=== PATIENT | female | born 1955 ===

== ENCOUNTER 2019-05-18 07:30 | Inpatient (IN) ==
[2019-05-13 14:56] LABS: Appearance,Urine CLEAR; Bilirubin,Urine NEG (NEG); Color,Urine STRAW; Culture Indicated,Urine NO; Glucose,Urine (UA) NEGATIVE (NEG); Ketones,Urine NEG (NEG); Leukocyte Esterase,Urine NEG /uL (NEG); Nitrate,Urine NEG (NEG); Protein,Urine NEG (NEG); Specific Gravity,Urine 1.006 (1.000-1.035); Urine Blood NEG mg/dL (<0.03); Urobilinogen,Urine NEG (NEG)
[2019-05-13 17:27] LABS: Estimated Average Glucose(eAG) 128 mg/dL; Hemoglobin A1C 6.1 % HGB (4.0-6.0)
[2019-05-13 18:09] LABS: Basophils # (Auto) 0 K/mcL (0.0-0.3); Basophils % (Auto) 0.3 % (0.0-2.0); Eosinophils # (Auto) 0.1 K/mcL (0.0-0.7); Eosinophils % (Auto) 0.7 % (0.0-7.0); Granulocytes % (Auto) 69.7 % (38.0-78.0); Hemoglobin 13.3 g/dL (12.0-15.0); Lymphocytes # (Auto) 3.3 K/mcL (1.5-4.8); Lymphocytes % (Auto) 23.4 % (15.5-49.0); Mean Cell Volume 96.5 fL (80.0-100.0); Mean Corpuscular HGB Conc 34.2 g/dL (31.0-36.0); Mean Platelet Volume 7.9 fL (7.4-10.4); Monocytes # (Auto) 0.8 K/mcL (0.1-0.9); Monocytes % (Auto) 5.9 % (1.0-12.0); Platelet Count 292 K/mcL (140-440); RBC 4.04 M/mcL (4.00-5.20); Red Cell Distribution Width 12.9 % (11.5-14.5); WBC 14.3 K/mcL (4.5-11.0)
[2019-05-13 18:30] LABS: Blood Urea Nitrogen 13 mg/dl (8-23); Carbon Dioxide 24 mmol/L (22-30); Glomerular Filtration Rate 98; Glucose 116 mg/dL (70-105)
[2019-05-13 18:33] LABS: Chloride 93 mmol/L (96-108)
[~2019-05-18 07:30] MED LIST: CELECOXIB 200 MG CAPSULE PO SCH; PREGABALIN 75 MG CAPSULE PO SCH; ceFAZolin 2 GM in DEXTROSE 5% IN WATER 50 ML IV SCH; oxyCODONE 10 MG TAB.ER.12H PO SCH
[2019-05-18] MEDS ORDERED: IPRATROPIUM/ALBUTEROL 3 ML AMPUL.NEB NEB PRN ×2 (08:00→13:49)
[2019-05-18] MEDS ORDERED: SCOPOLAMINE 1 PATCH PATCH TOPICAL PRN (08:00)
[2019-05-18] MEDS ORDERED: fentaNYL 250 MCG/5 ML VIAL IV ONE (11:10)
[2019-05-18] MEDS ORDERED: KETAMINE 100 MG/ML ML IV ONE (11:10)
[2019-05-18] MEDS ORDERED: ONDANSETRON 4 MG/2 ML VIAL IV ONE (11:10)
[2019-05-18] MEDS ORDERED: SUCCINYLCHOLINE 20 MG/ML ML IV ONE (11:10)
[2019-05-18] MEDS ORDERED: LIDOCAINE HCL/PF 100 MG/5 ML SYRINGE IV ONE (11:10)
[2019-05-18] MEDS ORDERED: TRANEXAMIC ACID 1,000 MG/10 ML VIAL IV ONE (11:10)
[2019-05-18] MEDS ORDERED: KETOROLAC 30 MG/ML VIAL IV ONE (11:10)
[2019-05-18] MEDS ORDERED: GLYCOPYRROLATE 0.2 MG/ML VIAL IV ONE (11:10)
[2019-05-18] MEDS ORDERED: DEXAMETHASONE 10 MG/ML VIAL IV ONE (11:10)
[2019-05-18] MEDS ORDERED: PROPOFOL 200 MG/20 ML VIAL IV ONE (11:10)
[2019-05-18] MEDS ORDERED: MIDAZOLAM 2 MG/2 ML VIAL IV ONE (11:10)
[2019-05-18] MEDS ORDERED: BUPIVACAINE W/EPI 0.5% 50 ML VIAL IJ ONE (11:39)
--- NOTE | 2019-05-18 13:15 | Brief Operative Note ---
Date of procedure: 05/18/19 Pre-op diagnosis: R shoulder proximal humerus nonunion Post-op diagnosis: same Procedure: Right reverse total shoulder arthroplasty Grafts/Implants: Yes (Tornier aequalis reverse fx stem [id number], 6 insert, 36 glenosphere 2 off) Anesthesia: GETA Findings: nonunion of proximal humerus, severe osteoporosis Complications: none Surgeon: Parveen Rosales Osha Inspector: Ephraim Muller Estimated blood loss (cc): 150 Specimens Removed/Pathology: none sent Condition: stable Disposition: PACU
[2019-05-18] MEDS ORDERED: MAGNESIUM HYDROXIDE 30 ML ORAL.SUSP PO PRN (13:16)
[2019-05-18] MEDS ORDERED: FLEETS ADULT ENEMA PR PRN (13:16)
[2019-05-18] MEDS ORDERED: ONDANSETRON 4 MG/2 ML VIAL IV PRN (13:16)
[2019-05-18] MEDS ORDERED: BISACODYL 10 MG SUPP.RECT PR PRN (13:16)
[2019-05-18] MEDS ORDERED: TRANEXAMIC ACID 1,000 MG/10 ML VIAL IV SCH (13:16)
[2019-05-18] MEDS ORDERED: BENZOCAINE/MENTHOL 1 LOZENGE PO PRN (13:16)
[2019-05-18] MEDS ORDERED: POLYETHYLENE GLYCOL 3350 17 GM PACKET PO PRN (13:16)
[2019-05-18] MEDS ORDERED: HYDROmorphone 2 MG/ML VIAL IV PRN ×2 (13:16→13:49)
[2019-05-18] MEDS ORDERED: DEXTROSE 31 GM ORAL.SUSP PO PRN (13:24)
[2019-05-18] MEDS ORDERED: DEXTROSE 50% 50 ML VIAL IV PRN (13:24)
[2019-05-18] MEDS ORDERED: NALOXONE HCL 0.4 MG/ML VIAL IV PRN (13:49)
[2019-05-18] MEDS ORDERED: FLUMAZENIL 0.1 MG/ML ML IV PRN (13:49)
[2019-05-18] MEDS ORDERED: fentaNYL 100 MCG/2 ML VIAL IV PRN (13:49)
[2019-05-18] MEDS ORDERED: PROMETHAZINE 25 MG/ML VIAL IV PRN (13:49)
[2019-05-18] MEDS ORDERED: ePHEDrine 50 MG/ML AMPUL IV PRN (13:49)
[2019-05-18] MEDS ORDERED: ATROPINE SULFATE 0.4 MG/ML VIAL IV PRN (13:49)
[2019-05-18] MEDS ORDERED: diphenhydrAMINE 50 MG/ML VIAL IV PRN (13:49)
[2019-05-18] MEDS ORDERED: METHOCARBAMOL 1,000 MG/10 ML VIAL IV PRN (13:49)
[2019-05-18] MEDS ORDERED: METOPROLOL TARTRATE 5 MG/5 ML VIAL IV PRN (13:49)
[2019-05-18] MEDS ORDERED: ACETAMINOPHEN 1,000 MG/100 ML BOTTLE IV ONE (13:49)
[2019-05-18] MEDS ORDERED: LACTATED RINGERS 1,000 ML IV SCH (14:00)
--- NOTE | 2019-05-18 14:07 | XRay Report ---
CLINICAL INFORMATION: Post-OP Total Shoulder COMPARISON: None. FINDINGS: Total shoulder prostheses is anatomically aligned. There is a vague transverse fracture of the surgical neck which is nondisplaced and transfixed by the humeral stem. Soft tissue swelling seen at the expected IMPRESSION: Shoulder prosthesis is anatomically aligned. Interpreted and Authenticated by: Ridge Rosenberg 05/18/19
--- NOTE | 2019-05-18 14:26 | Operative Note ---
DATE OF OPERATION: 05/18/2019 PREOPERATIVE DIAGNOSIS: Right proximal humerus surgical neck nonunion. POSTOPERATIVE DIAGNOSIS: Right proximal humerus surgical neck nonunion. PROCEDURE PERFORMED: Right reverse total shoulder arthroplasty placing a DePuy Aequalis fracture reversed humeral stem size 11 x 130; a 6 mm polyethylene insert; a 25 mm standard baseplate with a 36 mm, 2 mm inferior offset glenosphere. SURGEON: Parveen Rosales M.D. UTILITY BILL COLLECTION CLERK: Emiliano Muller PA-C. The PA's assistance was required for the safe and efficient completion of the entire case. This provider's expertise and technical skill were required throughout the case. The PA assisted with preoperative coordination, intraoperative retraction, wound closure, dressing and splint application, as well as postoperative documentation and care coordination. ANESTHESIA: General. DRAINS: None. SPECIMENS: Humeral head fragment which was discarded. BLOOD LOSS: 150 mL. COMPLICATIONS: None. POSTOPERATIVE CONDITION: Stable. INDICATIONS FOR SURGERY: This is a 64-year-old female who sustained a fall approximately 6 months ago, had pain but did not seek orthopedic treatment until recently due to pain and dysfunction. X-rays revealed a surgical neck proximal humerus fracture that was non-united, as well as profound osteoporosis. FINDINGS AT SURGERY: Profound osteoporosis with complete nonunion of the surgical neck fracture. Post implantation showed acceptable stability. PROCEDURE IN DETAIL: The patient had been seen preoperatively. Informed consent had been obtained after discussion of risks and benefits of surgery. Risks including, but not limited to, bleeding, possibly requiring transfusion; infection, possibly requiring implant removal and prolonged IV antibiotics; injury to nerves, blood vessels, and other surrounding structures; anesthetic risks; incomplete or no resolution of symptoms; possible fracture dislocation; stiffness; pain; instability; possibility of needing further revision surgery. She understood and wished to proceed. Correct operative site was marked and then patient was taken to the operating room. General anesthesia was induced. She was carefully positioned in the beach chair position and pressure points carefully padded. The right shoulder and upper extremity were then carefully prepped and draped in normal sterile fashion. A timeout was performed verifying patient name, operative site, and plan. Ioban was used to cover all skin surfaces and then a standard deltopectoral incision was made with a scalpel through skin and subcutaneous tissue. Hemostasis was obtained with Bovie cautery and then we started dissecting down to the deltopectoral interval. Her deltopectoral interval was quite medial, and we did end up lacerating the cephalic vein which had to be cauterized. We continued blunt dissection through the interval down onto the proximal humerus, and then we started developing the subdeltoid space with blunt finger dissection. This was quite scarred in. Once we had this exposed, it was very visible that there was gross mobility of the fracture site. I identified the approximate bicipital groove area and then unroofed this. We were able to find the biceps tendon. We opened the rotator interval, and then I used an osteotome to try and do a lesser tuberosity osteotomy. A traction stitch was then placed around this. I then identified the head, and using an oscillating saw followed by osteotome, I was able to remove the head. We then placed a traction stitch around the greater tuberosity fragment and then proceeded to expose the glenoid. Upon exposure of the glenoid, I did place a double-bent sharp Hohmann at the superior glenoid and just levering on this a little bit ended up pushing right through the bone. We did remove labrum circumferentially as well as biceps stump and then using the guide with a 10 degree cephalic tilt, and I did slightly increase her anteversion to try and get best possible bone. Once the central guide pin was placed, we started reaming. I reamed until I had some cancellous bone on the inferior half. Again, concerned about her bone quality, I did not want to ream too deep. I then used the drill to drill the central screw. We then opened a 25 baseplate, and the appropriate length 6.5 screw was placed through the central peg. We then irrigated Irrisept in the glenoid, after a minute pulse lavaged with saline, and then screwed the baseplate down until contacting bone. We then drilled and placed our superior and inferior locking screws and then drilled and placed the nonlocking anterior and posterior screws. We then chose a 36 mm, 2 mm offset glenosphere with the offset placed inferiorly. We did irrigate Irrisept, after a minute pulse lavaged with saline, and then impacted the glenosphere. The screw was then advanced until it was tight. We then re-exposed the proximal humerus. We debrided out scar tissue from the proximal humerus and then started hand reaming until a size 11. A 13 was clearly too large, so we trialed with an 11. We measured our greater tuberosity fragment between 35 and 40 mm and placed the stem at approximately 40 mm with 30 degrees of retroversion. We then went to reduce the stem with a 6 insert and this was going to be a snug, so we re-dislocated. We opened an 11 x 130 stem. We used the bone punch in the humeral head to make a plug to go through the window and the stem. Antibiotic cement was mixed. We placed a cement restrictor down the humeral canal and then irrigated with Irrisept. After a minute we pulse lavaged with saline. We then injected cement down the humeral canal and then I used digital pressure to pressurize. We then took the stem and with the 30 degree retroversion guide shun, placed this down until about 40 mm marked from the superior shoulder. This was held absolutely still while cement hardened. We did remove excess cement with a curet. After cement had fully hardened, we then retrialed with the 6 insert, and again it was going to be a snug reduction, so I went ahead and re-exposed the proximal humerus. A stitch was placed through the medial hole and then the definitive 6 insert was placed, and the shoulder was reduced with satisfactory tension. I took the arm through range of motion and it was stable. We irrigated with Irrisept, after a minute pulse lavaged with saline. I then took the greater tuberosity fragment with a #2 FiberWire traction around it and tied this to the medial suture going through the implant. I then tied before cutting the greater tuberosity FiberWire to the lesser tuberosity FiberWire and then cut that. I then placed a [id number] from the greater tuberosity through bone down to the humeral shaft, and another [id number], and then we closed the rotator interval with a #2 FiberWire again. After this was completed, I then closed the deltopectoral interval with a running #1 Vicryl. Final Irrisept irrigation was done, after a minute final pulse lavage, and then marycruz for skin. Xeroform and sterile dressings were applied. Arm was placed in a Donjoy abductor immobilizer, and the patient was awakened, extubated, and transferred to recovery in stable condition. JOSE J:dereck Job ID: [id number] Doc ID: [id number] Parveen Rosales MD
[2019-05-18] MEDS: 0.9 % SODIUM CHLORIDE 1,000 ML IV SCH ×2 (14:52→23:52)
[2019-05-18] MEDS: KETOROLAC 15 MG/ML VIAL IV PRN ×2 (14:52→21:05)
[2019-05-18] MEDS: oxyCODONE/APAP 5/325MG TABLET PO PRN ×2 (14:53→21:17)
[2019-05-18] MEDS: 0.9 % SODIUM CHLORIDE 10 ML SYRINGE IV SCH ×2 (14:58→22:00)
[2019-05-18] MEDS: INSULIN LISPRO 1 UNIT/0.01 ML UNIT SQ SCH ×2 (16:50→21:17)
[2019-05-18] MEDS: metFORMIN 500 MG TABLET PO SCH (16:51)
[2019-05-18] MEDS: ceFAZolin 1 GM VIAL IV SCH (17:55)
[2019-05-18] MEDS ORDERED: SENNOSIDES 1 TABLET PO SCH (21:00)
[2019-05-18] MEDS ORDERED: SIMVASTATIN 20 MG TABLET PO SCH (21:00)
[2019-05-18] MEDS: DOCUSATE SODIUM 100 MG CAPSULE PO SCH (21:05)
[2019-05-18] MEDS: ACETAMINOPHEN 500 MG TABLET PO SCH (21:17)
[2019-05-19] MEDS: ceFAZolin 1 GM VIAL IV SCH (02:54)
[2019-05-19] MEDS: oxyCODONE/APAP 5/325MG TABLET PO PRN ×2 (02:55→09:41)
[2019-05-19] MEDS: 0.9 % SODIUM CHLORIDE 10 ML SYRINGE IV SCH (06:59)
--- NOTE | 2019-05-19 07:06 | Discharge Summary ---
Providers - Providers Patient information: Note initiated : 05/19/19 at 7:01 am Service Date, if different from initiated Date: [] Patient: Althea Carroll 64 y/o F admitted on 05/18/19 for Right Reverse Total Shoulder Arthroplasty. Chief Complaint: [] Discharge date: 05/19/19 Hospitalization Hospital Course: Pt was admitted for a R Reverse TSA. Pt admitted on the day of procedure. Pt was transferred to the floor for IV pain meds, IV abx, and PT. Pt discharged to home. Will NOT attend out-pt PT until 6 weeks post-op. Discharge diagnosis: R shoulder non-union proximal humerus fx Exam - Exam Incision draining: Yes (mild draining) Weight bearing status: none (codmans only for 6 weeks) Ortho Discharge - TSA - Patient Instructions Diet: Regular Diet Activity: activity as tolerated Total Shoulder Protocol: Leave immobilizer in place except for bathing and ROM. Abduction pillow. Continue to wear sling until seen by physician. Codman Pendulum : These exercises use momentum produced by your body to move your shoulder joint. Bend your knees and shift your weight to your front leg, then back, allowing your arm to swing in the same directions. Using the same technique, alternately shift your weight between your right and left legs, allowing your arm to swing from side to side. These exercises are also performed in counterclockwise and clockwise circular motions. Typically these exercises are performed several times per day, for a set number repetitions or minutes, such as 20 times in a row or 5 minutes at a time. Dressing Care: May shower in 2 days - Follow Up Plan Disposition: Home, Self-Care Prognosis: Good Rehab Potential: Good Overall status at discharge: patient is progressing back to baseline - Orders For Discharge Prescriptions: oxyCODONE/APAP [Percocet 5-325 mg] 1 - 2 tab PO Q4HP PRN #75 tab PRN Reason: Per Pain Protocol Prescription Printed Pending Studies Resuscitation Status Full Code Diet Consistent Carbohydrate Diet Start FriMay 18 1320 Acetaminophen (Tylenol) 500 mg PO BID ON LICENSE OF [facility]; Protocol Last Admin: 05/18/19 21:17 Dose: Not Given Documented by: PRO Diagnostic Test (Pha) (Accu-Chek) 1 each FS ACHS AYANA Last Admin: 05/18/19 21:11 Dose: 1 each Documented by: Admin: 05/18/19 16:51 Dose: 1 each Documented by: ROBERT Docusate Sodium (Colace) 100 mg PO BID ON LICENSE OF [facility] Last Admin: 05/18/19 21:05 Dose: 100 mg Documented by: PRO Sodium Chloride (Sodium Chloride 0.9%) 1,000 mls @ 100 mls/hr IV .Q10H ON LICENSE OF [facility] Last Admin: 05/18/19 23:52 Dose: 100 mls/hr Documented by: Infusion: 05/18/19 23:52 Dose: 100 mls/hr Documented by: Admin: 05/18/19 14:52 Dose: 100 mls/hr Documented by: ROBERT Insulin Human Lispro (Humalog) 0 unit SQ ACHS ON LICENSE OF [facility]; Protocol Last Admin: 05/18/19 21:17 Dose: 2 units Documented by: Admin: 05/18/19 16:50 Dose: 6 units Documented by: ROBERT Ketorolac Tromethamine (Toradol) 15 mg IV Q6HP PRN; Protocol PRN Reason: Per Pain Protocol Stop: 05/20/19 13:21 Last Admin: 05/18/19 21:05 Dose: 15 mg Documented by: Admin: 05/18/19 14:52 Dose: 15 mg Documented by: ROBERT Metformin HCl (Glucophage) 1,000 mg PO BIDCC ON LICENSE OF [facility] Last Admin: 05/18/19 16:51 Dose: 1,000 mg Documented by: ROBERT Oxycodone/Acetaminophen (Percocet 5-325 Mg) 0 tab PO Q4HP PRN; Protocol PRN Reason: Per Pain Protocol Last Admin: 05/19/19 02:55 Dose: 1 tab Documented by: Admin: 05/18/19 21:17 Dose: 1 tab Documented by: Admin: 05/18/19 14:53 Dose: 2 tab Documented by: ROBERT Senna (Senokot) 2 tab PO HS ON LICENSE OF [facility] Last Admin: 05/18/19 21:05 Dose: 2 tab Documented by: PRO Simvastatin (Zocor) 20 mg PO [facility] Last Admin: 05/18/19 21:05 Dose: 20 mg Documented by: PRO Sodium Chloride (Saline Flush) 10 ml IV Q8 ON LICENSE OF [facility] Last Admin: 05/19/19 06:59 Dose: Not Given Documented by: Admin: 05/18/19 22:00 Dose: Not Given Documented by: Admin: 05/18/19 14:58 Dose: Not Given Documented by: ROBERT Shift Summary 05/19/19 03:16 Shift Summary by Sanam Bland Pt is A&Ox4. VSS on RA. Up w/1 assist & GB. Ambulated in hallway x1. Pt was straight cath'd x1 for 425cc at 2215. Currently attempting to void. IV to LFA w/NS @ 100ml/hr. Immobilizer/sling to right arm. Ordered non-WB to operative side. Dressing to right shoulder w/shadow drainage. Pt got Percocet 5 mg x2 & PRN Toradol x1. (Held HS PO Tylenol as was giving Percocet at that time). HS Accucheck was 170 & pt got 2 units SSI coverage. Scope patch behind left ear. Will update with verbal report. Initialized on 05/19/19 03:16 - END OF NOTE
[2019-05-19] MEDS: metFORMIN 500 MG TABLET PO SCH (07:57)
[2019-05-19] MEDS: INSULIN LISPRO 1 UNIT/0.01 ML UNIT SQ SCH ×2 (07:57→11:50)
[2019-05-19] MEDS ORDERED: LISINOPRIL 20 MG TABLET PO SCH (09:00)
[2019-05-19] MEDS ORDERED: ASCORBIC ACID 500 MG TABLET PO SCH (09:00)
[2019-05-19] MEDS ORDERED: MULTIVIT,THER IRON,CA,FA & MIN 1 TABLET PO SCH (09:00)
[2019-05-19] MEDS: ACETAMINOPHEN 500 MG TABLET PO SCH (09:40)
[2019-05-19] MEDS: DOCUSATE SODIUM 100 MG CAPSULE PO SCH (09:40)
[2019-05-19] MEDS ORDERED: FLU VACC QS2019-20(6MOS UP)/PF 60 MCG/0.5 ML SYRINGE IM ONE (10:00)
[2019-05-19] MEDS: 0.9 % SODIUM CHLORIDE 1,000 ML IV SCH (11:51)
== END 2019-05-19 13:05 | disposition home or self-care (01) | DRG 483 ==
LOC: MEDSUR 07:48
PROVIDERS: ADMIT Orthopaedic Surgery; ATTEND Orthopaedic Surgery